=== PATIENT | male | born 1960 | race Caucasian/White ===

== ENCOUNTER 2018-09-29 14:54 | Inpatient (IN) | payer OTHER ==
[2018-09-29 16:46] VITALS: BP 119/77
[2018-09-29 17:07] LABS: ABSOLUTE NEUTROPHILS 4.5 thou/uL (1.4-8.2); BASOPHILS 0.7 % (0.0-2.0); EOSINOPHILS 0.4 % (0.0-3.0); HEMOGLOBIN 14.7 gm/dL (14.0-18.0); LYMPHOCYTES 18.9 % (24.0-44.0); MCH 29.7 pg (26.0-34.0); MCHC 34.2 g/dL (28.0-37.0); MCV 86.9 fL (80.0-100.0); MONOCYTES 10.5 % (1.0-8.0); PLATELET COUNT 472 thou/uL (150-400); POLYS 69.5 % (36.0-66.0); RBC 4.95 mil/uL (4.50-6.00); WBC 6.4 thou/uL (4.0-11.0)
[2018-09-29 17:25] LABS: ALBUMIN 4.2 g/dL (3.4-5.0); CALCIUM 9.5 mg/dL (8.5-10.1); TOTAL BILIRUBIN 0.8 mg/dL (<0.1-1.0)
[2018-09-29 19:49] VITALS: BP 138/86
--- NOTE | 2018-09-29 21:49 | NUR ---
ASSUMED CARE @ 19:15, SITTING IN DAY ROOM WITH PEERS. WALKED TO HIS ROOM, AT HIS REQUEST TO GO TO BED. REFUSED TO ALLOW CLOTHES OR SHOES TO BE TAKEN OFF. UP @ 21:30, STANDING IN ROOM. OFFERED BATHROOM, REFUSED AND WALKED TO THE DAY ROOM. GIVEN HOLDOL IN APPLE JUICE. CONTINUED TO AMBLATE AD ADEBAYO. WALKED BACK TO ROOM BY STAFF AND AGREED TO ALLOW SHOES TO BE TAKEN OFF.
[2018-09-29 23:27] VITALS: BP 138/86
[2018-09-30 05:28] LABS: MCH 29.7 pg (26.0-34.0); MCV 87.3 fL (80.0-100.0); RBC 4.69 mil/uL (4.50-6.00); RDW 12.6 % (10.5-14.5); WBC 4.6 thou/uL (4.0-11.0)
[2018-09-30 05:35] LABS: CALCIUM 9.6 mg/dL (8.5-10.1); MAGNESIUM 2.2 mg/dL (1.8-2.4); POTASSIUM 3.7 mmol/L (3.5-5.1)
--- NOTE | 2018-09-30 05:41 | NUR ---
LAB VALUES DELTA CHECK ON PLATELETS 392 ON 09/30/18 AND WAS 472 ON 09/29/18. AWAKE AND SITTING UP IN BED OFTEN THROUGHOUT THE NOC.
--- NOTE | 2018-09-30 07:21 | NUR ---
PATIENT ADMITTED TO ROOM 521 FOR MAJOR NEUROCOGNITIVE DISORDER, ORDERS DR. YEPEZ. PATIENT WANDERED ABOUT THE UNIT, NOT ALLOWING SKIN CHECK. VSS, LUNGS DIMINISHED, HYPOACTIVE BOWEL SOUNDS. COMPLETED ASSESSMENT FROM RECORDS SENT WITH PATIENT.
--- NOTE | 2018-09-30 07:58 | EKG ---
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: Ozzy RAMIREZ : 1960 Requested By: Lauro Mendez Order Number: [id number] MD: Arnulfo Daniels Measurements Intervals [place] Rate: 91 P: 56 [place]: 134 QRS: 42 QRSD: 75 T: 51 QT: 348 QTc: 429 Interpretive Statements Sinus rhythm Borderline low voltage, extremity leads No previous ECG available for comparison Electronically Signed On 09-30-2018 7:58:03 CDT by Arnulfo Daniels [email or web address] ��������������������������������������������� <ELECTRONICALLY SIGNED> ���������������������������������������� By: Arnulfo Daniels MD, [facility] ��������������������������������������������� 09/30/18 0758 1802 01 Arnulfo Daniels MD, FACC /EPI
--- NOTE | 2018-09-30 15:20 | NUR ---
ASSUMED PATIENT CARE AT 07:15. PATIENT WAS ALLOWED TO SLEEP UNTIL AFTER 11:00 AM, R/T HAVING ONLY TWO HOURS OF SLEEP LAST NIGHT. WOULD NOT EAT BREAKFAST OR LUNCH; LOOKS AT FOOD WITHOUT SITTING DOWN, THEN WALKS AWAY AND WANDERS AROUND IN THE D.R. HAS FLAT AFFECT, NON-COMMUNICATIVE WITH STAFF; HOWEVER, OVERHEAD HIM TALKING OUTLOUD TO SOMEONE WITH NO BEING PRESENT WITH HIM. NON-COMPLIANT WITH A.M. MEDICATIONS; ABLE TO GIVE AFTERNOON PROPANALOL BY DILUTING IN WATER. PATIENT HAS NOT SAT DOWN AT ALL THROUGHOUT THIS SHIFT. CONTINUE TO MONITOR.
[2018-09-30] MEDS ORDERED: PAZEO2.5 ML OPHTHALMIC (15:36)
[2018-09-30] MEDS ORDERED: HALOPERIDOL2 MG/1 ML PO ×2 (15:37→15:47)
[2018-09-30] MEDS ORDERED: LORAZEPAM 2MG2 MG/M1 PO (15:38)
[2018-09-30] MEDS ORDERED: LORAZEPAM 22 MG/1 ML IM (15:59)
[2018-09-30 16:33] VITALS: BP 103/60
[2018-09-30 20:21] VITALS: BP 131/87
--- NOTE | 2018-09-30 22:20 | NUR ---
ASSUMED CARE @ 19:30, IN BED EYES CLOSED, RESPIRATIONS EVEN AND UNLABORED. ASSESSED AND HRRR, S1S2 NOTED. RESPIRATIONS EVEN AND UNLABORED, CTA. ABD SOUNDS NORMOACTIVE. IN BED WITH HEAD TO THE FOOT OF THE BED, LYING ON HIS STOMACH. EYES OPEN. SPEAKS VERY LITTLE, MUMBLING ANSWERS TO MY QUESTIONS. ROLLED ONTO SIDE TO AUSCULTATE LUNG SOUNDS AND HEART SOUNDS. COOPERATED WITH REPOSITIONING. PILLOW REPOSITIONED FOR COMFORT AND COVERED WITH A SHEET. VS 131/87 98.1F 112 16 96%. WILL CONTINUE TO MONITOR.
[2018-10-01 07:30] VITALS: BP 103/72
[2018-10-01 09:00] VITALS: BP 103/72
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
--- NOTE | 2018-10-01 10:30 | NUR ---
PT WAS IN ANOTHER PT ROOM LYING HIS HEAD ON OTHER PT CLEAN BED. HE DIDN'T WANT TO LEAVE ROOM UNTIL X2 NURSES ESCORTED HIM TO HIS ROOM.
--- NOTE | 2018-10-01 11:22 | NUR ---
PT KNEELING BY BED. HIS BROTHER HERE TO VISIT HIM AND HE STATED THAT HE IS SHOCKED ABOUT HIS BEHAVIOR. SAID NORMALY HE IS UP WALKING AROUND, GOING INTO OTHERS ROOMS, AND FLAT AFFECT. CLINICAL WRITER GOING INTO TALK TO FAMILY. BROTHER STATED THAT HE DIDN'T THINK THEY CHECKED FOR UTI AT IN.
--- NOTE | 2018-10-01 11:40 | NUR ---
DR. YEPEZ HERE TO SEE FAMILY, TALKING ABOUT HOSPICE CARE.
--- NOTE | 2018-10-01 13:00 | NUR ---
PT LYING DOWN RESTING WITH EYES CLOSED.
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
--- NOTE | 2018-10-01 15:48 | NUR ---
ALON met with the pt brother Nguyễn Fernandez concerning the appropriateness of hospice. Dr. Mendez, and Dr. Brothers stated that the pt need to be on hospice. SW referred the pt to [facility]. ALON schedule appointment Madelaine Doyle and the brother Nguyễn. Pt brother met with Madelaine and signed the documents to contract with hospice. ALON provided Madelaine with documentation, and Dr. Mendez prescription for hospice evaluation. Dr. Mendez stated that pt was discharge on October 06, 2018. ALON will follow-up with pt upon discharge.
--- NOTE | 2018-10-01 16:54 | NUR ---
OFFERED PT TO GO EAT DINNER. HE DIDN'T WANT TO WALK INTO DINNING ROOM. REPLACED WET SOCKS WITH DRY ONES FROM SPILLED WATER. PT LYING FACE DOWN IN BED WITH HEAD TURNED.
[2018-10-01 19:36] VITALS: BP 133/94
[2018-10-01 23:17] VITALS: BP 133/94
--- NOTE | 2018-10-02 04:01 | NUR ---
PT IN BED AT [facility] OF SHIFT. WANTED TO GET UP AND WALK. ESCORTED TO DAY ROOM. STOOPED POSTURE AND VERY STIFF. COOPERATIVE WITH MED AT . RETURNED TO ROOM AND SETTLED INTO BED. RESTLESS INITIALLY, BUT SETTLED. UP TO CHANGE X1 THROUGH THE NIGHT.
[2018-10-02 07:24] VITALS: BP 133/81
--- NOTE | 2018-10-02 11:10 | NUR ---
PT UP OUT OF BED AT THIS TIME. SLOW GETTING AROUND. COULDN'T DRINK FROM REGULAR PITCHER [employer]AW. ABLE TO DRINK FROM CUP WITHOUT SWALLOWING ISSUES. ONCE UP AND WALKING HE IS ABLE TO MANEUVER WITH FURNITURE. DENIES ANY PAIN. SPEECH IS CLEARER TODAY. HE GETS IRRITATED WHEN TELLING HIM TO DO SOMETHING HE IS NOT WANTING TO DO. WEARING BREIF FOR INCON. DIDN'T EAT BREAKFAST, JUST HAD PUDDING AND DRINKING WATER.
--- NOTE | 2018-10-02 12:45 | NUR ---
SITTING DOWN EATING LUNCH, DOES WANT TO GET UP AND WALK. CAN GET IRRITATED AND SAY STOP OR GET AWAY.
--- NOTE | 2018-10-02 13:30 | NUR ---
ASSISTED PT TO ROOM. WALKING BENT OVER. AFRAID OF FALLING ASSISTED PT TO BED. LAYED DOWN WITHOUT ANY ISSUES.
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
[2018-10-02 19:58] VITALS: BP 138/76
--- NOTE | 2018-10-02 22:42 | NUR ---
ASSUMED CARE OF THE PT AT 1930 PM. ALERT TO PERSON AND PLACE. THE PT WALKS SLOWLY WITH HIS BACK BENT OVER. TOOK HIS MEDICATION WITHOUT ANY DIFFICULTY. LYING IN BED AT THIS TIME ON HIS RIGHT SIDE. REMAINS ON 12 MINUTE CHECKS FOR HIS SAFETY.
--- NOTE | 2018-10-03 02:49 | NUR ---
THE PT HAS BEEN TURNED EVERY 2 HOURS AND CHECKED FOR INCONTIENCE.
--- NOTE | 2018-10-03 06:41 | NUR ---
THE PT SLEPT 7 HOURS LAST NIGHT.
[2018-10-03 07:40] VITALS: BP 137/88
--- NOTE | 2018-10-03 11:04 | NUR ---
PATIENT SLEEPING DURING CHANGE OF SHIFT. ASSISTED TO BREAKFAST BY STAFF. NOTED PATIENT NEEDED ORAL CAVITY CLEANED. LIPS ADHERRED TOGETHER WITH RESIDUE OF SALIVA AND EXPECTORANT OF EITHER PRIOR MEDICATION PASS OR FOOD FROM NIGHT BEFORE. EXCORTED TO DINING AREA WHERE HE HAD TO BE AROUSED SEVERAL TIMES FROM FALLING OFF TO SLEEP. APPETITE VERY POOR - ZYPREXA 2.5 MG. GIVEN WITH OATMEAL - HAD TO MONITOR SINCE PATIENT ATTEMPTED TO SPIT OUT. AMBULATES HUNCHED OVER AND UNSTEADY ON FEET. STAFF HAS BEEN MONITORING. MORNING PROGRESSED PATIENT MORE ALERT.STAFF AMBULATED PATIENT AROUND UNIT AND SEEMED PLEASED WITH THIS. NO AGITATION OR AGGRESSION NOTED WITH REDIRECTION. NO INTERNAL STIMULI OBSERVED AND PATIENT DENIED WHEN QUESTIONED. CURRENTLY SITTING IN DINING AREA - BASICALLY ALERT TO ONESELF.
[2018-10-03 20:00] VITALS: BP 130/78
--- NOTE | 2018-10-03 22:16 | NUR ---
ASSUMED CARE @ 19:30, NOTED TO BE IN THE DAY ROOM AMBULATING WITH AN UNSTEADY GAIT IS A HIGH FALL RISK. TOOK 2100 MEDS WHOLE WITH WATER. LAID DOWN IN BED @ 2100.
[2018-10-04 02:49] VITALS: BP 130/78
--- NOTE | 2018-10-04 09:14 | NUR ---
0730: Report rec from noc shift, care assumed. Report from BUSINESS RELATIONSHIP MANAGER that pt has yellowish coating inside mouth, oral swabs utilized to give oral care, pt unable to follow directions to allow nurse to assess mouth, will update on-call Dr regarding mouth. Ambulatory to DR with staff assist x1, gait slow/unstaedy. Observed and assisted pt with a.m. meal, pt declines any solid food, drinks juice and water w/o noted problem, Ensure initiated with meals TID to start @ noon today. Takes med whole w/o difficulty, will cont to monitor.
[2018-10-04 20:00] VITALS: BP 135/91
--- NOTE | 2018-10-04 23:54 | NUR ---
ASSUMED CARE OF THE PT AT 1930PM. ALERT ET ORIENTED TO PERSON. THE PT WAS IN BED WHEN THIS NUTRITION DIRECTOR CAME ON DUTY. TOOK HIS HS MEDICATIONS WITHOUT ANY DIFFICULTY. REMAINS ON 12 MINUTE CHECKS FOR HIS SAFETY.
--- NOTE | 2018-10-05 04:48 | NUR ---
THE PT HAS BEEN IN BED ALL NIGHT, APPEARS TO HAVE BEEN AWAKE MOST OF THE NOC SHIFT. INCONT. x1 SO FAR IN THE NOC SHIFT.
--- NOTE | 2018-10-05 04:59 | NUR ---
THE PT SLEPT 4 HOURS LAST NIGHT.
[2018-10-05 07:20] VITALS: BP 113/76
--- NOTE | 2018-10-05 10:54 | NUR ---
0720: Report rec. from noc shift, care assumed. Awake, assisted x1 with ADL's and ambulation to DR, appetite poor, requires encouragement with meals, drinks Ensure w/o problems. Cooperative with staff, takes meds w/o difficulty.
--- NOTE | 2018-10-05 17:35 | NUR ---
ALON faxed the documentation to [facility] to assist with transport to the nursing facility in [place], [place] on October 06, 2018.
[2018-10-05 19:32] VITALS: BP 116/84
[2018-10-06 00:38] VITALS: BP 116/84
[2018-10-06 00:40] VITALS: BP 116/84
--- NOTE | 2018-10-06 04:15 | NUR ---
IN BED RESTING AT CHANGE OF SHIFT. POSITION CHANGED THROUGH THE NIGHT. SLEPT WELL, WITH ONLY PERIODIC RSTLESSNESS.
[2018-10-06 09:23] VITALS: BP 112/60
[2018-10-06] MEDS ORDERED: ZYPREXA 5 MG TAB5 M1 PO (10:09)
--- NOTE | 2018-10-06 10:09 | NUR ---
Patient Name: JERRY LAINEZ Admission Date: 09/29/18 DISCHARGE PLAN: Pt will be discharge to [facility] Care Assessment: Pt was assessed by Dr. Mendez and diagnosed with Major Neurocognitive Disorder with failure to thrive. Dr. Mendez observed that pt will be appropriate for Hospice. Level II Assessment: None Transportation: Pt will be transported by the [facility]. Special Instructions/Notes: Pt was referred to hospice through [facility]. Pt family signed the contract on September 29, 2018. DISCHARGE TO FACILITY: Memory Care unit Facility: [facility] Fax: Address: [facility] [address] [place] [address] Contact Name: LETY PCP: TATO Psychiatrist:
[2018-10-06] MEDS ORDERED: OLOPATADINE HCL5 ML OPHTHALMIC (10:10)
--- NOTE | 2018-10-06 10:10 | NUR ---
PATIENT SITTING IN DAY ROOM FOR BREAKFAST, FED BY STAFF, CONSUMED ABOUT 50%. REQUIRES LOTS OF ENCOURAGEMENT TO FEED. PATIENT WILL NOT RESPOND TO ASSESSMENT QUESTION, SLEEPING OFF/ON DURING 1:1 ASSESSMENT. NO SUICIDAL OR HOMOCIDAL STATEMENT MADE. WHEN FUULY AWAKEN, PATIENT GOT UP AND STARTS WANDERING AROUND THE UNIT. WILL MONITOR FOR SAFETY.
[2018-10-06 10:21] VITALS: BP 112/60
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
== END 2018-10-06 10:42 | DRG 884 ==
LOC: SBH
PROVIDERS: Internal Medicine; ADMIT Psychiatry & Neurology Psychiatry
DX: F01.51 Vascular dementia, unspecified severity, with behavioral disturbance (principal); F20.9 Schizophrenia, unspecified; E78.5 Hyperlipidemia, unspecified; I10 Essential (primary) hypertension; H10.89 Other conjunctivitis; Z66 Do not resuscitate; R62.7 Adult failure to thrive
CPT/HCPCS: 10880